=== PATIENT | female | born 1970 | race Caucasian/White ===

== ENCOUNTER → 2020-07-14 10:12 | Outpatient (CLI) | payer OTHER, SELFPAY ==
--- NOTE | ~2020-07-14 | MM_ITS ---
EXAMINATION: MM screening kassie BI w tristan HISTORY: Screening TECHNIQUE: Craniocaudal and mediolateral oblique 3-D tomosynthesis images were obtained and synthetic 2-D images were generated. CAD analysis was submitted and interpreted. COMPARISON: 09/10/2014 BREAST PARENCHYMAL COMPOSITION: The breasts are almost entirely fatty. FINDINGS: There is no evidence of suspicious mass, calcification, or architectural distortion to sugg est malignancy in either breast. There has been no suspicious interval change. IMPRESSION: 1. No mammographic evidence of malignancy. 2. Recommend routine screening mammography in one year. BI-RADS Category 1: Negative Reviewed, dictated and finalized at location A.
== END ==
PROVIDERS: PCP Family Medicine; Visit Provider Family Medicine
DX: Z12.31 Encounter for screening mammogram for malignant neoplasm of breast (principal)
CPT/HCPCS: 77063; 77067

== ENCOUNTER 2021-08-17 00:08 | Day surgery (SDC) | payer OTHER, SELFPAY ==
[2021-08-02 13:21] VITALS: BMI 35.6
[2021-08-17 06:53] VITALS: BP 152/96; PULSE 114; RESP 19; TEMP 36; O2SAT 99
[2021-08-17] MEDS: LACTATED RINGERS 1,000 ML 150 ML IV CONT (07:09)
--- NOTE | 2021-08-17 07:27 | WPDANESEPPF ---
Anes - Initial Pre Proc Eval Procedure: Operation Date: 08/17/21 08:00 Proposed Procedures p Esophagogastroduodenoscopy & Screening Colonoscopy - Ricky Laboy MD Date/Time: 08/17/21 07:27 Surgeon: Ricky Laboy MD Pre Op Diagnosis: gerd:neoplasm screening Patient Data Age: 50 Gender: F Height: 1.68 m Weight: 100.3 kg Last Vital Signs Temp 36.0 C L 08/17/21 06:53 Pulse 114 H 08/17/21 06:53 Resp 19 08/17/21 06:53 BP 152/96 H 08/17/21 06:53 Pulse Ox 99 08/17/21 06:53 O2 Del Method Room Air 08/17/21 06:53 Allergies Allergy/AdvReac Type Severity Reaction Status Date / Time No Known Allergies Allergy Verified 08/17/21 06:52 Home Medications Medication Instructions Recorded Confirmed Type ascorbic acid (vitamin C) 500 mg 500 mg PO DAILY 11/10/19 08/02/21 History tablet cetirizine 10 mg capsule 10 mg PO DAILY 11/10/19 08/02/21 History losartan 50 mg tablet 50 mg PO DAILY #90 tabs 02/01/21 08/02/21 Rx albuterol sulfate 90 mcg/actuation 1 puff inhalation Q4H PRN 03/01/21 08/02/21 Rx aerosol inhaler (Ventolin HFA) shortness of breath or wheezing #8.5 grams pantoprazole 40 mg tablet,delayed 40 mg PO QAM #90 tabs 05/26/21 08/02/21 Rx release (Protonix) atorvastatin 20 mg tablet (Lipitor) 20 mg PO DAILY #90 tabs 07/04/21 08/02/21 Rx famotidine 40 mg tablet See Rx Instructions .Route 07/04/21 08/02/21 Rx .COMPLEX #90 tabs Patient hx anesthesia problems: none Family hx anesthesia problems: none Results Review: All pre-operative results and documents have been reviewed as part of the pre-operative evaluation. [facility] Past Medical History Medical History Abnormal liver function Asthma GERD (gastroesophageal reflux disease) Hyperlipidemia Hypertension Polycythemia Surgical History Surgical History Cholecystectomy planned 2009 Family History Family History Father Alcoholism Hypertension Heart disease Mother Diabetes mellitus Cancer Sibling Diabetes mellitus Cancer Social History Social History Smoking status: Never smoker Second hand tobacco smoke exposure: No Alcohol intake: never Drinks per week: 1 Alcohol use details: wine Substance use: never Substance use type: does not use Living arrangements: with family Gender identity (if verbalized by the patient): Female Spiritual care concerns: No Agree to blood products: Yes Anes - Eval Final PreProcedure Day of Procedure 08/17/21 07:27 Patient weight: obese Heart: regular rate and rhythm Lungs: clear to auscultation Airway: Mallampati scale class II Neurological: alert and oriented Last oral intake: >/= 8 hours ASA classification: III Emergent: no Anesthetic plan: proceed Anesthesia type and monitoring: general GIVS and standard monitoring Results Review: All pre-operative results and documents have been reviewed as part of the pre-operative evaluation. Informed Consent: The patient's anesthetic plan and its attendant risks and benefits were discussed with the patient/family/POA. Questions were solicited and answers provided to the satisfaction of the patient/family/POA.
--- NOTE | 2021-08-17 07:48 | PM.HPGS ---
History of Present Illness History of Present Illness Consent: Risks, benefits, and alternatives have been discussed and questions answered. Patient agrees to proceed with procedure. Chief complaint: gerd:neoplasm screening Narrative: Bayron Osborn is a 50 year old female with non-cardiac chest pain better with protonix and pepcid, never had egd or colonoscopy Review of Systems Constitutional: Constitutional: Denies headache(s) and Denies weakness Eyes: Eyes: Denies blurry vision ENT: Reports Normal hearing present, Denies headache(s) and Denies neck pain Cardiovascular: Cardiovascular: Denies chest pain and Denies dyspnea Respiratory: Respiratory: Denies dyspnea Gastrointestinal: Gastrointestinal: Reports no additional gastrointestinal complaints Genitourinary: Genitourinary: Denies dysuria Musculoskeletal: Musculoskeletal: Denies neck pain Integumentary/Breasts: Skin/Breast: Denies dry skin Neurologic: Reports Normal hearing present, Denies headache(s) and Denies weakness Psychiatric: Psychiatric: Denies anxiety Endocrine: Endocrine: Denies change in body appearance Hematologic/Lymphatic: Hematologic/Lymphatic: Denies easy bleeding Allergic/Immunologic: Allergic/Immunologic: Denies urticaria PMFSH Past Medical History Medical History (Updated 08/17/21 @ 07:49 by Ricky Laboy MD) Abnormal liver function Asthma GERD (gastroesophageal reflux disease) Hyperlipidemia Hypertension Polycythemia Surgical History Surgical History Cholecystectomy planned 2009 Family History Family History Father Alcoholism Hypertension Heart disease Mother Diabetes mellitus Cancer Sibling Diabetes mellitus Cancer Social History Social History Smoking status: Never smoker Second hand tobacco smoke exposure: No Alcohol intake: never Drinks per week: 1 Alcohol use details: wine Substance use: never Substance use type: does not use Living arrangements: with family Gender identity (if verbalized by the patient): Female Spiritual care concerns: No Agree to blood products: Yes Meds Home Medications and Allergies Home Medications Medication Instructions Recorded Confirmed Type ascorbic acid (vitamin C) 500 mg 500 mg PO DAILY 11/10/19 08/02/21 History tablet cetirizine 10 mg capsule 10 mg PO DAILY 11/10/19 08/02/21 History losartan 50 mg tablet 50 mg PO DAILY #90 tabs 02/01/21 08/02/21 Rx albuterol sulfate 90 mcg/actuation 1 puff inhalation Q4H PRN 03/01/21 08/02/21 Rx aerosol inhaler (Ventolin HFA) shortness of breath or wheezing #8.5 grams pantoprazole 40 mg tablet,delayed 40 mg PO QAM #90 tabs 05/26/21 08/02/21 Rx release (Protonix) atorvastatin 20 mg tablet (Lipitor) 20 mg PO DAILY #90 tabs 07/04/21 08/02/21 Rx famotidine 40 mg tablet See Rx Instructions .Route 07/04/21 08/02/21 Rx .COMPLEX #90 tabs Allergies Allergy/AdvReac Type Severity Reaction Status Date / Time No Known Allergies Allergy Verified 08/17/21 06:52 Vital Signs Vital Signs - 24 hr 08/17/21 06:53 Temperature 96.8 F L Pulse Rate 114 H Respiratory Rate 19 Blood Pressure 152/96 H Pulse Oximetry 99 Oxygen Delivery Room Air Exam Const: General: comfortable and no acute distress HENMT: General nose exam: Normal nares present Eyes: General: appearance normal, both eyes and all related structures Neck: Neck: no JVD Resp: Auscultation: clear to auscultation bilaterally Cardio: Rate: regular rate Rhythm: regular rhythm GI: Inspection: non-distended GI Palp: Yes Soft to palpation Skin: General skin exam: normal color Neuro: General: gait normal Speech: normal speech Extrem: General: normal to inspection Psych: Mental Status: mental status grossly normal Asses
--- NOTE | 2021-08-17 08:16 | SUR.OPER ---
EGD START: 0757; END: 0800. COLONOSCOPY START: 0805; END: 0814.
[2021-08-17 08:17] VITALS: BP 110/68; PULSE 86; RESP 25; O2SAT 97
[2021-08-17 08:27] VITALS: BP 122/81; PULSE 93; RESP 21; O2SAT 99
[2021-08-17 08:37] VITALS: BP 131/94; PULSE 92; RESP 23; O2SAT 96
== END 2021-08-17 08:46 | disposition home or self-care (01) ==
PROVIDERS: PCP Family Medicine; Visit Provider Internal Medicine Gastroenterology
PROC: 0DJ08ZZ Inspection of Upper Intestinal Tract, Via Natural or Artificial Opening Endoscopic (ICD-10-PCS; CPT 43235; principal; 2021-08-17 08:00)
DX: Z12.11 Encounter for screening for malignant neoplasm of colon (principal); K21.9 Gastro-esophageal reflux disease without esophagitis; K64.8 Other hemorrhoids; R07.89 Other chest pain; Z79.51 Long term (current) use of inhaled steroids; I10 Essential (primary) hypertension; J45.909 Unspecified asthma, uncomplicated; E78.5 Hyperlipidemia, unspecified; D75.1 Secondary polycythemia; E66.9 Obesity, unspecified; Z68.35 Body mass index [BMI] 35.0-35.9, adult
CPT/HCPCS: 45378; 43239; 88305; J2001; J2704; J7120

== ENCOUNTER → 2021-08-26 09:58 | Outpatient (CLI) | payer OTHER, SELFPAY ==
--- NOTE | ~2021-08-26 | MM_ITS ---
EXAMINATION: MM screening kassie BI w tristan HISTORY: Screening mammogram TECHNIQUE: Craniocaudal and mediolateral oblique 3-D tomosynthesis images were obtained and synthetic 2-D images were generated. CAD analysis was submitted and interpreted. COMPARISON: 07/14/2020, 09/10/2014 BREAST PARENCHYMAL COMPOSITION: The breasts are almost entirely fatty. FINDINGS: There is no suspicious mass, calcification, or architectural distortion to suggest malignan cy in either breast. There has been no suspicious interval change. IMPRESSION: 1. No mammographic evidence of malignancy. 2. Recommend routine screening mammography in one year. BI-RADS Category 1: Negative Reviewed, dictated and finalized at location A.
== END ==
PROVIDERS: PCP Family Medicine; Visit Provider Family Medicine
DX: Z12.31 Encounter for screening mammogram for malignant neoplasm of breast (principal)
CPT/HCPCS: 77063; 77067

== ENCOUNTER 2022-09-17 10:00 | Emergency (ER) | payer OTHER, SELFPAY ==
--- NOTE | 2022-09-17 10:05 | ED.GENADULT ---
HPI - General Adult General Chief complaint: Urogenital-Female Stated complaint: . Time Seen by Provider: 09/17/22 10:12 Source: patient, RN notes reviewed and old records reviewed Mode of arrival: ambulatory Limitations: no limitations History of Present Illness HPI narrative: 52-year-old female presents to the [facility] with concerns for a UTI. Patient symptoms are pain with urination, frequency, unable to completely empty bladder with occasional blood on the tissue when she wipes. States she started with low back pain about a week to week and half ago Related Data Allergies Allergy/AdvReac Type Severity Reaction Status Date / Time No Known Allergies Allergy Verified 09/17/22 10:17 Review of Systems Review of Systems: All systems reviewed & are unremarkable except as noted in HPI and below Constitutional: Constitutional: Reports no additional constitutional complaints Eyes: Eyes: Reports no additional eye complaints ENT: Reports system reviewed and no additional complaints, except as documented Cardiovascular: Cardiovascular: Reports no additional cardiovascular complaints, Denies chest pain and Denies dyspnea Respiratory: Respiratory: Reports no additional respiratory complaints, Denies chest congestion, Denies cough and Denies dyspnea Gastrointestinal: Gastrointestinal: Reports no additional gastrointestinal complaints, Denies abdominal pain, Denies nausea and Denies vomiting Genitourinary: Genitourinary: Reports as per HPI, Reports dysuria and Reports urinary urgency Musculoskeletal: Musculoskeletal: Reports no additional musculoskeletal complaints Integumentary/Breasts: Skin/Breast: Reports system reviewed and no additional complaints, except as docu Neurologic: Reports system reviewed and no additional complaints, except as documented Psychiatric: Psychiatric: Reports no additional psychiatric complaints Allergic/Immunologic: Allergic/Immunologic: Reports no additional allergic/immunologic complaints [facility] Past Medical History Medical History Abnormal liver function Asthma GERD (gastroesophageal reflux disease) Hyperlipidemia Hypertension Polycythemia Surgical History Surgical History Cholecystectomy planned 2009 History of colonoscopy 08/17/21-rpt 10 years Family History Family History Father Alcoholism Hypertension Heart disease Mother Diabetes mellitus Cancer Sibling Diabetes mellitus Cancer Social History Social History Smoking status: Never smoker Second hand tobacco smoke exposure: No Alcohol intake: never Drinks per week: 1 Alcohol use details: wine Substance use: never Substance use type: does not use Living arrangements: with family Occupation/Education: occupation Gender identity (if verbalized by the patient): Female Spiritual care concerns: No Agree to blood products: Yes Comments At the time of my signature, I reviewed and agree with the nursing past medical, surgical, social, and family history. There is no relevant family history pertinent to the patient complaint. Exam Const: General: cooperative, healthy appearing, comfortable, no acute distress, well developed, alert and well nourished Nutritional Appearance: well nourished and obese Orientation/consciousness: patient oriented x3 Limitations: no limitations HENMT: Head: normal to inspection Ears: hearing grossly normal bilaterally and external ears normal Face/Nose/Sinus: Normal external nose present, Normal nares present, Normal nasal mucous membranes and turbinates present and normal facial exam Face and sinus: normal facial exam Mouth: Yes lip normal Eyes: General: appearance normal, both eyes and all related structures Alignment and Position: alignment normal
[2022-09-17 10:11] VITALS: BP 133/84; PULSE 77; RESP 18; TEMP 36.3; O2SAT 100
== END 2022-09-17 10:22 | disposition home or self-care (01) ==
PROVIDERS: Emergency Provider Nurse Practitioner; PCP Nurse Practitioner Family
DX: N30.01 Acute cystitis with hematuria (principal); E78.5 Hyperlipidemia, unspecified; I10 Essential (primary) hypertension; J45.909 Unspecified asthma, uncomplicated
CPT/HCPCS: 81003; 87077; 87086; 87186; 99213; G0463